=== PATIENT | female | born 1940 | race Caucasian/White ===

== ENCOUNTER 2018-06-02 06:59 | Day surgery (SDC) | payer MEDICARE, BC ==
[2018-05-28 08:38] LABS: INR 1.1 INR; PARTIAL THROMBOPLASTIN TIME 31 SECONDS (22-32); PROTHROMBIN TIME 10.7 SECONDS (9.0-12.0)
[2018-05-28 08:40] LABS: ALANINE AMINOTRANSFERASE 23 U/L (12-78); ALBUMIN 3.7 G/DL (3.4-5.0); ALKALINE PHOSPHATASE 87 IU/L (46-116); ANION GAP 6 (8-16); ASPARTATE AMINO TRANSFERASE 19 U/L (10-37); BILIRUBIN,TOTAL 0.3 MG/DL (0.1-1.0); BLOOD UREA NITROGEN 17 MG/DL (7-18); BUN/CREATININE RATIO 19.8 (6.6-38.0); CHLORIDE 101 MMOL/L (99-107); CREATININE 0.86 MG/DL (0.40-0.90); GLUCOSE 76 MG/DL (70-104); POTASSIUM 4.3 MMOL/L (3.5-5.1); SODIUM 136 MMOL/L (135-145); TOTAL PROTEIN 7.5 G/DL (6.4-8.2); eGFR 64 ML/MIN
[2018-05-28 08:46] LABS: BASOPHILS # (AUTO) 0.1 X10'3 (0-0.2); BASOPHILS % (AUTO) 1.7 % (0-1); EOSINOPHILS # (AUTO) 0.3 X10'3 (0-0.9); EOSINOPHILS % (AUTO) 4.4 % (0-6); HEMATOCRIT 39.1 % (35.0-45.0); HEMOGLOBIN 12.9 g/dl (12.0-16.0); LYMPHOCYTES # (AUTO) 1.7 X10'3 (1.1-4.8); LYMPHOCYTES % (AUTO) 29.9 % (21-51); MEAN CORPUSCULAR HEMOGLOBIN 28.4 PG (27.0-31.0); MEAN CORPUSCULAR VOLUME 85.8 FL (78-98); MEAN PLATELET VOLUME 8.3 FL (7.4-10.4); MONOCYTES # (AUTO) 0.6 X10'3 (0-0.9); NEUTROPHILS # (AUTO) 3.1 X10'3 (1.8-7.7); PLATELET COUNT 272 X10'3 (140-440); RED BLOOD COUNT 4.56 X10'6 (4.20-5.60); RED CELL DISTRIBUTION WIDTH 15.7 % (11.5-14.5); WHITE BLOOD COUNT 5.8 X10'3 (4.5-11.0)
[~2018-06-02] VITALS: Ht 149.9 cm; Wt 53.2 kg
[2018-06-02] VITALS (12 sets, daily range): BP systolic 113–142; BP diastolic 57–75
[2018-06-02] MEDS ORDERED: normal saline 1000ml 1,000 ML IV SCH (07:30)
[2018-06-02] MEDS ORDERED: LORazepam 0.5 MG tablet PO PRN (07:30)
[2018-06-02] MEDS ORDERED: diphenhydrAMINE 25mg capsule PO PRN (07:30)
[2018-06-02] MEDS ORDERED: nitroGLYCERIN 0.4mg SUBLingual tab SL PRN (07:30)
[2018-06-02] MEDS ORDERED: DULO-31 PO (08:34)
[2018-06-02] MEDS ORDERED: MV-M1TAB19 PO (08:34)
[2018-06-02] MEDS ORDERED: OFLO5DRO RIGHTEYE (08:34)
[2018-06-02] MEDS ORDERED: FLONASE (08:34)
[2018-06-02] MEDS ORDERED: UMEC1DIS (08:34)
[2018-06-02] MEDS ORDERED: PRAV20TA4 PO (08:34)
[2018-06-02] MEDS ORDERED: NITR0.4T48 SL (08:34)
[2018-06-02] MEDS ORDERED: ACET-2119 PO (08:34)
[2018-06-02] MEDS ORDERED: LEVA15HF4 INH (08:34)
[2018-06-02] MEDS ORDERED: OSC500T PO (08:34)
[2018-06-02] MEDS ORDERED: PANT40TA4 PO (08:34)
[2018-06-02] MEDS ORDERED: LEVO25TA2 PO (08:34)
[2018-06-02] MEDS ORDERED: DILT120C51 PO (08:34)
[2018-06-02] MEDS ORDERED: CYCL-394 PO (08:34)
[2018-06-02] MEDS ORDERED: MEGA RED PO (08:34)
[2018-06-02] MEDS ORDERED: iohexol 350 MG/ML 50ML vial IV ONE (09:11)
[2018-06-02] MEDS ORDERED: fentaNYL/PF 50MCG/1 ML 2ML syringe ONE (09:11)
[2018-06-02] MEDS ORDERED: iohexol 350MG/ML 100ml bottle IV ONE (09:11)
[2018-06-02] MEDS ORDERED: midazolam 2 mg/2 ml injection ONE (09:11)
[2018-06-02] MEDS ORDERED: LIDOcaine 1% (10mg/ml)w/preservative injection 20ml MDV ONE (09:11)
[2018-06-02] MEDS ORDERED: ondansetron/PF 4mg/2ml inj IV PRN (11:20)
[2018-06-02] MEDS ORDERED: HYDROcodone/acetaminophen 5mg/325mg tablet PO PRN (11:20)
[2018-06-02] MEDS ORDERED: HYDROcodone/acetaminophen 10/325mg tab PO PRN (11:20)
[2018-06-02] MEDS ORDERED: proCHLORperazine 10 MG/2 ml inj IV PRN (11:20)
[2018-06-02] MEDS ORDERED: OXAZEpam 15mg capsule PO PRN (11:20)
== END 2018-06-02 17:05 | disposition home or self-care (01) ==
LOC: SSTAY O 06:59
PROVIDERS: ATTEND Internal Medicine Cardiovascular Disease
DX: I25.10 Atherosclerotic heart disease of native coronary artery without angina pectoris (principal); E03.9 Hypothyroidism, unspecified; I10 Essential (primary) hypertension; Z79.899 Other long term (current) drug therapy; Z98.890 Other specified postprocedural states; Z88.8 Allergy status to other drugs, medicaments and biological substances
CPT/HCPCS: 36415; 71046; 80053; 83880; 85025; 85610; 85730; 93005; 93458; 99152; 99153; A6257; J1644; J2001; J2250; J3010; J7030; Q0163; Q9967; C1760; C1769

== ENCOUNTER 2021-07-14 07:29 | Emergency (ER) | payer MEDICARE, MEDICAID ==
[~2021-07-14] VITALS: Ht 149.9 cm; Wt 49.1 kg
[~2021-07-14 07:29] MED LIST: ACET-2119 PO; CYCL-394 PO; DILT120C51 PO; DULO-31 PO; FLONASE; LEVA15HF4 INH; LEVO25TA2 PO; MEGA RED PO; MV-M1TAB19 PO; NITR0.4T48 SL; OFLO5DRO RIGHTEYE; OSC500T PO; PANT40TA54 PO; PRAV20TA4 PO; UMEC1DIS
[2021-07-14 09:16] VITALS: BP 163/85
[2021-07-14 09:35] LABS: BASOPHILS % (AUTO) 0.2 % (0-1); EOSINOPHILS % (AUTO) 0.3 % (0-6); HEMATOCRIT 41.6 % (35.0-45.0); HEMOGLOBIN 14.1 g/dl (12.0-16.0); LYMPHOCYTES % (AUTO) 9.8 % (21-51); MEAN CORPUSCULAR HEMOGLOBIN 31.1 PG (27.0-31.0); MEAN CORPUSCULAR HGB CONC 33.9 g/dL (33.0-36.5); MEAN CORPUSCULAR VOLUME 91.6 FL (78-98); MEAN PLATELET VOLUME 8.1 FL (7.4-10.4); MONOCYTES # (AUTO) 0.9 X10'3 (0-0.9); MONOCYTES % (AUTO) 8.5 % (2-12); NEUTROPHILS # (AUTO) 8.4 X10'3 (1.8-7.7); NEUTROPHILS % (AUTO) 81.2 % (42-75); PLATELET COUNT 230 X10'3 (140-440); RED BLOOD COUNT 4.54 X10'6 (4.20-5.60); RED CELL DISTRIBUTION WIDTH 13.5 % (11.5-14.5); WHITE BLOOD COUNT 10.4 X10'3 (4.5-11.0)
[2021-07-14 09:37] LABS: ALANINE AMINOTRANSFERASE 20 U/L (12-78); ALBUMIN 3.5 G/DL (3.4-5.0); ALBUMIN/GLOBULIN RATIO 0.9 (1.1-1.5); ALKALINE PHOSPHATASE 74 IU/L (46-116); ANION GAP 9 (8-16); ASPARTATE AMINO TRANSFERASE 15 U/L (10-37); BILIRUBIN,TOTAL 0.6 MG/DL (0.1-1.0); BLOOD UREA NITROGEN 10 MG/DL (7-18); BUN/CREATININE RATIO 14.1 (6.6-38.0); CALCIUM 8.8 MG/DL (8.5-10.1); CHLORIDE 100 MMOL/L (99-107); CREATININE 0.71 MG/DL (0.40-0.90); GLUCOSE 107 MG/DL (70-104); POTASSIUM 4.3 MMOL/L (3.5-5.1); SODIUM 135 MMOL/L (135-145); TOTAL CARBON DIOXIDE 25.9 MMOL/L (24-32); TOTAL PROTEIN 7.3 G/DL (6.4-8.2); eGFR 79 ML/MIN
[2021-07-14] MEDS ORDERED: AZIT-83 PO (10:36)
== END 2021-07-14 11:14 | disposition home or self-care (01) ==
LOC: ER 07:29
DX: J02.9 Acute pharyngitis, unspecified (principal); Z20.822 Contact with and (suspected) exposure to COVID-19; R05.9 Cough, unspecified; R51.9 Headache, unspecified; R09.89 Other specified symptoms and signs involving the circulatory and respiratory systems; E78.00 Pure hypercholesterolemia, unspecified; J44.9 Chronic obstructive pulmonary disease, unspecified; E03.9 Hypothyroidism, unspecified; Z79.2 Long term (current) use of antibiotics; Z79.899 Other long term (current) drug therapy
CPT/HCPCS: 36415; 71045; 80053; 83605; 83880; 84484; 85025; 87040; 87502; 87503; 87635; 93005; 99285; C9803

== ENCOUNTER 2022-05-19 10:19 | Emergency (ER) | payer MEDICARE, MEDICAID ==
[~2022-05-19] VITALS: Ht 149.9 cm; Wt 51.8 kg
[~2022-05-19 10:19] MED LIST changes: +ASPI-1071 PO; +CLOP75TA34 PO; -CYCL-394 PO; -DILT120C51 PO; -FLONASE; +FLUT16SP26 NS; +FLUT1BLS4 INH; +GABA800T11 PO; -LEVA15HF4 INH; -LEVO25TA2 PO; +LEVO50TA8 PO; +LIDO700A47 TD; +LISI5TAB22 PO; +LOP25T PO; -MEGA RED PO; -MV-M1TAB19 PO; -NITR0.4T48 SL; +NITR0.4T51 SL; -OFLO5DRO RIGHTEYE; -OSC500T PO; +PRAM0.5T12 PO; -UMEC1DIS
[2022-05-19 10:40] LABS: BASOPHILS # (AUTO) 0.1 X10'3 (0-0.2); BASOPHILS % (AUTO) 1.3 % (0-1); EOSINOPHILS # (AUTO) 0.2 X10'3 (0-0.9); LYMPHOCYTES # (AUTO) 2.2 X10'3 (1.1-4.8); LYMPHOCYTES % (AUTO) 31.3 % (21-51); MEAN CORPUSCULAR HEMOGLOBIN 30.4 PG (27.0-31.0); MEAN CORPUSCULAR HGB CONC 34.1 g/dL (33.0-36.5); MEAN CORPUSCULAR VOLUME 89.3 FL (78-98); MEAN PLATELET VOLUME 7.9 FL (7.4-10.4); MONOCYTES # (AUTO) 0.8 X10'3 (0-0.9); NEUTROPHILS # (AUTO) 3.7 X10'3 (1.8-7.7); NEUTROPHILS % (AUTO) 53.4 % (42-75); PLATELET COUNT 240 X10'3 (140-440); RED BLOOD COUNT 4.93 X10'6 (4.20-5.60); RED CELL DISTRIBUTION WIDTH 15.8 % (11.5-14.5)
[2022-05-19 10:56] LABS: ALANINE AMINOTRANSFERASE 17 U/L (12-78); ALBUMIN 4.5 G/DL (3.4-5.0); ALBUMIN/GLOBULIN RATIO 1.2 (1.1-1.5); ALKALINE PHOSPHATASE 65 IU/L (46-116); ANION GAP 7 (8-16); ASPARTATE AMINO TRANSFERASE 23 U/L (10-37); BILIRUBIN,TOTAL 0.7 MG/DL (0.1-1.0); BLOOD UREA NITROGEN 11 MG/DL (7-18); BUN/CREATININE RATIO 15.1 (6.6-38.0); CALCIUM 10.1 MG/DL (8.5-10.1); CHLORIDE 100 MMOL/L (99-107); CREATININE 0.73 MG/DL (0.40-0.90); GLUCOSE 96 MG/DL (70-104); MAGNESIUM 2.4 MG/DL (1.5-2.4); POTASSIUM 4.3 MMOL/L (3.5-5.1); SODIUM 135 MMOL/L (135-145); TOTAL PROTEIN 8.3 G/DL (6.4-8.2); eGFR 76 ML/MIN
[2022-05-19 12:26] VITALS: BP 178/74
[2022-05-19] MEDS ORDERED: IRBE150T51 PO (12:38)
== END 2022-05-19 14:44 | disposition home or self-care (01) ==
LOC: ER 10:21
DX: I10 Essential (primary) hypertension (principal); I51.9 Heart disease, unspecified; J44.9 Chronic obstructive pulmonary disease, unspecified; E03.9 Hypothyroidism, unspecified; Z79.899 Other long term (current) drug therapy
CPT/HCPCS: 36415; 80053; 83735; 83880; 84484; 85025; 93005; 99284

== ENCOUNTER 2024-03-26 18:32 | Emergency (ER) | payer MEDICARE, MEDICAID ==
[~2024-03-26] VITALS: Ht 149.9 cm; Wt 51.5 kg
[~2024-03-26 18:32] MED LIST changes: -ASPI-1071 PO; -CLOP75TA34 PO; +GABA-1555 PO; -GABA800T11 PO; -LISI5TAB22 PO
[2024-03-26 18:38] VITALS: BP 162/74; PULSE 84; RESP 16; TEMP 98.5; O2SAT 97
== END 2024-03-26 19:03 | disposition home or self-care (01) ==
LOC: ER 18:33
DX: J22 Unspecified acute lower respiratory infection (principal); R05.9 Cough, unspecified; I11.0 Hypertensive heart disease with heart failure; I50.9 Heart failure, unspecified; E03.9 Hypothyroidism, unspecified; J44.9 Chronic obstructive pulmonary disease, unspecified; E78.00 Pure hypercholesterolemia, unspecified; F10.90 Alcohol use, unspecified, uncomplicated; Z79.52 Long term (current) use of systemic steroids; Z79.899 Other long term (current) drug therapy; Y90.9 Presence of alcohol in blood, level not specified
CPT/HCPCS: 99281

== ENCOUNTER 2024-04-19 06:04 | Emergency (ER) | payer MEDICARE, MEDICAID ==
[~2024-04-19] VITALS: Ht 149.9 cm; Wt 51.9 kg
[2024-04-19 06:12] VITALS: TEMP 97.7
[2024-04-19 07:24] LABS: BASOPHILS % (AUTO) 0.4 % (0-1); EOSINOPHILS % (AUTO) 0.3 % (0-6); HEMATOCRIT 35.1 % (35.0-45.0); HEMOGLOBIN 11.7 g/dl (12.0-16.0); LYMPHOCYTES % (AUTO) 28.1 % (21-51); MEAN CORPUSCULAR HEMOGLOBIN 30.4 PG (27.0-31.0); MEAN CORPUSCULAR HGB CONC 33.4 g/dL (33.0-36.5); MEAN CORPUSCULAR VOLUME 90.9 FL (78-98); MEAN PLATELET VOLUME 7.6 FL (7.4-10.4); MONOCYTES # (AUTO) 0.7 X10'3 (0-0.9); MONOCYTES % (AUTO) 10.5 % (2-12); NEUTROPHILS # (AUTO) 4.2 X10'3 (1.8-7.7); NEUTROPHILS % (AUTO) 60.7 % (42-75); PLATELET COUNT 247 X10'3 (140-440); RED BLOOD COUNT 3.86 X10'6 (4.20-5.60); RED CELL DISTRIBUTION WIDTH 14.6 % (11.5-14.5)
[2024-04-19 09:06] LABS: ALANINE AMINOTRANSFERASE 23 U/L (12-78); ALBUMIN 3.1 G/DL (3.4-5.0); ALBUMIN/GLOBULIN RATIO 0.9 (1.1-1.5); ALKALINE PHOSPHATASE 69 IU/L (46-116); ANION GAP 8 (8-16); ASPARTATE AMINO TRANSFERASE 21 U/L (10-37); BILIRUBIN,TOTAL 0.4 MG/DL (0.1-1.0); BLOOD UREA NITROGEN 11 MG/DL (7-18); BUN/CREATININE RATIO 16.7 (10.0-20.0); CALCIUM 8.7 MG/DL (8.5-10.1); CHLORIDE 97 MMOL/L (99-107); CREATININE 0.66 MG/DL (0.40-0.90); GLUCOSE 88 MG/DL (70-104); POTASSIUM 3.9 MMOL/L (3.5-5.1); SODIUM 131 MMOL/L (135-145); TOTAL CARBON DIOXIDE 25.8 MMOL/L (24-32); TOTAL PROTEIN 6.7 G/DL (6.4-8.2); eCRCL 43 ML/MIN; eGFR 85 ML/MIN
[2024-04-19 09:16] LABS: PRO BRAIN NATRIURETIC PEPTIDE 377 PG/ML (0-450)
[2024-04-19 10:00] VITALS: BP 145/87; PULSE 75; RESP 18; O2SAT 97
== END 2024-04-19 10:00 | disposition home or self-care (01) ==
LOC: ER 06:05
DX: R07.89 Other chest pain (principal); E78.00 Pure hypercholesterolemia, unspecified; E03.9 Hypothyroidism, unspecified; J44.9 Chronic obstructive pulmonary disease, unspecified; F10.90 Alcohol use, unspecified, uncomplicated; I11.0 Hypertensive heart disease with heart failure; I50.9 Heart failure, unspecified; Z79.52 Long term (current) use of systemic steroids; Z79.899 Other long term (current) drug therapy; Y90.9 Presence of alcohol in blood, level not specified; Z20.822 Contact with and (suspected) exposure to COVID-19
CPT/HCPCS: 36415; 71045; 80053; 83880; 84484; 85025; 87502; 87503; 87811; 93005; 99285